=== PATIENT | female | born 1945 | race Caucasian/White ===

== ENCOUNTER 2023-03-28 10:21 | Day surgery (SDC) | payer MEDICARE, SELFPAY ==
[2023-03-11 15:11] LABS: Erythrocyte Sedimentation Rate 4 mm/hr (0-30)
[2023-03-11 15:33] LABS: CRP < 2.90 mg/L (0.0-3.0)
[2023-03-11 15:34] LABS: Vitamin D,25 Hydroxy 57.8 ng/mL
[2023-03-28] VITALS (8 sets, daily range): BP systolic 123–163; BP diastolic 48–69; PULSE 50–70; RESP 14–18; TEMP 36.1–36.6; O2SAT 94–100; BMI 23.5
[2023-03-28] MEDS: Lactated Ringers 1,000 ML 15 ML IV (10:58)
[2023-03-28] MEDS: Cefazolin 2 GM in 0.9% Normal Saline (100mL Bag) 100 ML IV (12:18)
--- NOTE | 2023-03-28 12:40 | RAD_ITS ---
STUDY: X-RAY - LEFT RADIUS AND ULNA REASON FOR EXAM: Female, 77 years old. FX TECHNIQUE: 2 view(s) of the forearm. COMPARISON: None. FINDINGS: Intraoperative imaging for open reduction internal fixation of the distal radial and ulnar fractures. There is good alignment. RAD/Forearm 2 Views IMPRESSION: Intraoperative imaging provided for open reduction internal fixation of the distal radial and ulnar fractures. There is good alignment. t Electronically Signed: Soto Zamorano MD at 9:35 EST ,
[2023-03-28] MEDS: Bupivacaine 0.25% 30 ML Vial (15:20)
--- NOTE | 2023-03-28 15:39 | PCM.OPRPT ---
Report of Operation Date of Procedure: 03/28/23 Description of Surgical Findings:: Preoperative diagnosis: 1. Hypertrophic nonunion left radial shaft 2. 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 Hypertrophic nonunion left radial shaft 2. 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 Removal of hardware left radial shaft 2. Removal of hardware left ulnar shaft 3. Debridement of nonunion left ulnar shaft 4. Debridement of nonunion left radial shaft 5. Open reduction internal fixation left radial shaft fracture with bone allograft 6. Open reduction internal fixation left ulnar shaft fracture with bone allograft Surgeon: Aamir Menendez DO Sr. Manager Corporate Communications: Erna Aguirre PA-C Anesthesia: General LMA Transformation Coach: Hector Lamar CRNA Estimated blood loss: 25 cc IV fluids: 1200 cc crystalloid Urine output: None recorded Specimen: None Implants: Synthes variable angle 2.7 mm LCP plate 8 hole 145 mm, Synthes 10 hole distal radius diameta plate, Arthrex arthrocell plus bone graft Complications: None apparent Packing/drains: None Indications: This is a 77-year-old female seen in the outpatient setting following a open fracture last year to her left radius and ulnar shafts. She underwent I&D with ORIF of both bones at an outside institution. There was early failure of ulnar fixation and subsequent nonunion of both the radius and ulna. I saw the patient in consultation. I recommend surgical intervention in the form of removal of hardware, takedown of nonunion and ORIF of both the radius and ulna. Infection workup was negative. Her vitamin D, calcium, and albumin were within normal limits. The risks, benefits, terms the procedure reviewed with patient at length and she agreed to proceed. Risk included but were not limited to bleeding, infection, loss of life or limb, need for additional surgery, persistent pain, nonhealing bone or wounds, symptomatic hardware, neurovascular injury, DVT or PE, stiffness. Patient expressed understanding of these risks and wished to proceed with surgery. Description of procedure: Patient was identified in the preoperative holding area by name, medical record number, and date of . The operative extremity was marked. All questions were answered to the patient's satisfaction. At time of her procedure, patient was brought the operative suite and positioned supine on a standard operating table. General anesthesia was induced and LMA was placed. A hand table was attached to patient's left side. The bed was spun 90 degrees. All bony prominences were well-padded. A well-padded pneumatic tourniquet was applied to left upper arm. We prepped and draped the left upper extremity in a normal, sterile orthopedic fashion. We performed timeout with all parties in attendance in agreement with the side, site, and operation to be performed. No concerns were voiced and would like to proceed with surgery. 2 g Ancef was administered IV prior to tourniquet inflation by anesthesia staff. I first examined the left upper extremity Esmarch bandage. Tourniquet was inflated to 250 mmHg which made up for 120 minutes. Esmarch was removed. I identified the previous scars utilizing a standard volar Marky approach and subcutaneous approach to the ulnar shaft. I first turned my attention to the radius. Previous scar was utilized. Skin was sharply incised with a 15 blade scalpel. FCR tendon sheath was identified and opened. The tendon was retracted ulnarly. Blunt dissection was then able to be carried down to bone. Hohmann retractors were placed after scar tissue was freed from the volar surface of the plate. Several screws had loosened since previous x-rays and were easily removed. The remainder of the screw was removed as well as the plate. There was micromotion able to visualize at the fracture site without significant fracture gapping. I then turned my attention to the ulna. Previous scar was utilized. Skin was sharply incised with a 15 blade scalpel. Blunt dissection was then carried down to level plate which was positioned volarly at the ulnar shaft. FCU was retracted and remaining screws were removed and plate. There was gross motion at the ulna consistent with an atrophic nonunion. I then proceeded with irrigation and debridement of the nonunion with takedown of any callus tissue. The ends of the bone were freshened with a rongeur and bur. The intramedullary canal was opened with the bur to allow for bleeding. I then packed the intramedullary canal with the Arthrex bone graft. I then turned my attention back to the radius. Fracture site and nonunion was debrided allowing gross motion at the fracture site. Callus was taken down. This was consistent with a hypertrophic nonunion. After opening the intramedullary canal and used a single bur to generate bleeding bone, the canals were packed with the Arthrex bone graft as well. I then proceeded with reduction of both bones with traction and manual reduction with lobster-claw clamps. Anatomic reduction was achieved. I selected a 10 hole diameta plate to bypass the screw holes in the bone on the radius. This was held provisionally with K wires and subsequently fixated with cortical screws proximal and distal to the fracture site. Anatomic reduction of the ulna was also achieved. An 8 hole 2.7 mm LCP plate was selected and fixed to bone with 2 cortical screws 1 proximal and distal to the fracture site. Orthogonal fluoroscopy confirmed acceptable anatomic reduction. Appropriate hardware placement and sizing was noted. I proceeded with fixation and the remaining screw holes, I achieved 3 bicortical screws proximal and distal to the ulnar shaft fracture. For bicortical screws were placed in the radial shaft as well as 4 unicortical pegs in the distal cluster of the radial plate. Fixation was stable. Near full range of motion of the forearm was noted following fixation. Tourniquet was deflated. Hemostasis was excellent. I irrigated the wounds and fracture sites. I packed the allograft circumferentially around both fractures. Final fluoroscopic images were obtained demonstrated anatomic reduction and appropriately sized hardware and positioning. Field block was administered with 20 cc total of 0.25% plain bupivacaine. Ulnar fascia was closed with interrupted [id number] 2-0 Vicryl suture. The dermis of both incisions was reapproximated with interrupted buried 2-0 Vicryl suture. Skin was finally reapproximated with horizontal mattress 2-0 nylon suture. Bulky sterile compression dressing was applied as well as a well-padded volar short arm fiberglass splint. Patient tolerated procedure well without apparent complication. She was safely extubated the operative suite and awoken. She was transferred to her gurney and subsequent to PACU in stable condition. Patient will receive an axillary block postoperatively for analgesia. Need for skilled programs assistant: Erna Aguirre PA-C was critical to the outcome of the case. During the course of the procedure the physician programs assistant played a vital role. Her intimate knowledge of my steps in the procedure aided in safe and expedient completion of the procedure. The PA played a vital role in positioning particularly in obtaining the appropriate positioning. The PA was also vital in the retraction of soft tissues during the exposure and protecting vital structures. The PA was also vital and obtaining fracture reduction and assisting with hardware placement. She also played a vital role in closure and splint application with my direct supervision. Postoperative plan: Follow-up in 2 weeks for suture removal and in splint x-rays. We will plan to transition to a wrist brace in 2 weeks removing only for hygiene and likely initiate early range of motion at approximately 4 weeks postoperatively. Aspirin 81 mg twice daily for DVT prophylaxis. Oxycodone prescription provided as an outpatient. Tylenol and naproxen encouraged for pain relief.
== END 2023-03-28 18:15 | disposition home or self-care (01) ==
LOC: SDC 10:22 → AC 10:23
PROVIDERS: Referring Provider Student in an Organized Health Care Education/Training Program; Visit Provider Student in an Organized Health Care Education/Training Program
PROC: (CPT 25420; principal; 2023-03-28 13:30)
DX: T84.193A Other mechanical complication of internal fixation device of bone of left forearm, initial encounter (principal); S52.302 Unspecified fracture of shaft of left radius; Y79.2 Prosthetic and other implants, materials and accessory orthopedic devices associated with adverse incidents; S52.20 Unspecified fracture of shaft of ulna; X58.XXXA Exposure to other specified factors, initial encounter; E78.00 Pure hypercholesterolemia, unspecified; I10 Essential (primary) hypertension; M81.0 Age-related osteoporosis without current pathological fracture
CPT/HCPCS: 25420; 64417; 01830; 36415; 73090; 76000; 82306; 85652; 86140; 93005; C1713; J7120; J2405